=== PATIENT | female | born 1970 | race Caucasian/White ===

== ENCOUNTER 2016-08-28 02:05 | Emergency (ER) | payer MEDICAID ==
[~2016-08-28] VITALS: Ht 162.6 cm; Wt 114.8 kg
[~2016-08-28 02:05] MED LIST: LOPE2CAP29 GT; LSNP10T PO; LSNP20T PO; ONDA2VIA IM; PARO20TA57 PO; SULF-228 PO
--- OUTSIDE RECORDS SUMMARY | 2016-08-28 02:10 | XMS REPORT | Continuity of Care Document ---
Author Author [facility] Address Unknown Phone Unavailable Allergies Active Description Code Type Severity Reaction Onset Reported/Identified Relationship to Patient Clinical Status Yes Cephalexin Monohydrate [id number] Drug Allergy Unknown N/A 11/14/2013 Medications Problems Date Dx Coded Attending Type Code Diagnosis Diagnosed By 11/10/2013 ELIAS RAMOS, CRISTOBAL Ot 300.00 11/10/2013 CRISTOBAL GRIFFIN MD Ot 786.59 11/10/2013 CRISTOBAL GRIFFIN MD Ot 787.91 11/12/2013 TORRIE RANDOLPH DO Ot 276.51 11/12/2013 TORRIE RANDOLPH DO Ot 787.91 04/12/2014 ISABEL FOURNIER MD Ot 300.00 04/12/2014 ISABEL FOURNIER MD Ot 305.1 04/12/2014 ISABEL FOURNIER MD Ot 786.50 01/14/2015 WYATT MADSEN MD Ot 611.89 Procedures Results Encounters ACCT No. Visit Date/Time Discharge Status Pt. Type Provider Facility Loc./Unit Complaint [id number] 09/11/2014 10:53:00 2014 23:59:59 CLS Outpatient TENA RAMOS [facility] [id number] 09/03/2014 08:28:00 2014 23:59:59 CLS Outpatient TENA RAMOS [facility] RAD [id number] 04/12/2014 12:52:00 2013 16:10:00 DIS Emergency IRLANDA RAMOS [facility] ED [id number] 12/20/2013 09:11:00 2013 23:59:59 CLS Outpatient [id number] 11/12/2013 00:52:00 2013 04:08:00 DIS Emergency TORRIE RANDOLPH DO [facility] ED [id number] 11/10/2013 06:00:00 2013 23:59:59 CLS Outpatient [id number] 11/10/2013 06:25:00 2013 08:20:00 DIS Shanelle GRIFFIN MD, [facility] ED [id number] 11/02/2013 11:37:00 2013 23:59:59 CLS Outpatient [id number] 02/22/2013 11:02:00 2012 23:59:59 CLS Outpatient [id number] 12/10/2012 09:29:00 2012 23:59:59 CLS Outpatient
--- OUTSIDE RECORDS SUMMARY | 2016-08-28 02:14 | XMS REPORT | Continuity of Care Document ---
Author Author [facility] Address Unknown Phone Unavailable Allergies Active Description Code Type Severity Reaction Onset Reported/Identified Relationship to Patient Clinical Status Yes Cephalexin Monohydrate [id number] Drug Allergy Unknown N/A 11/14/2013 Medications Problems [...] Status Pt. Type Provider Facility Loc./Unit Complaint [id number] 09/11/2014 10:53:00 2014 23:59:59 CLS Outpatient TENA RAMOS [facility] [id number] 09/03/2014 08:28:00 2014 23:59:59 CLS Outpatient TENA RAMOS [facility] RAD [id number] 04/12/2014 12:52:00 2013 16:10:00 DIS Emergency IRLANDA RAMOS [facility] ED [id number] 12/20/2013 09:11:00 2013 23:59:59 CLS Outpatient [id number] 11/12/2013 00:52:00 2013 04:08:00 DIS Emergency TORRIE RANDOLPH DO [facility] ED [id number] 11/10/2013 06:00:00 2013 23:59:59 CLS Outpatient [id number] 11/10/2013 06:25:00 2013 08:20:00 DIS Shanelle GRIFFIN MD, [facility] ED [id number] 11/02/2013 11:37:00 2013 23:59:59 CLS Outpatient [id number] 02/22/2013 11:02:00 2012 23:59:59 CLS Outpatient [id number] 12/10/2012 09:29:00 2012 23:59:59 CLS Outpatient
[2016-08-28] MEDS ORDERED: ASPIRIN 81 MG CHEW (LOW-DOSE) PO ONE (02:20)
[2016-08-28] MEDS ORDERED: VENL75CA86 PO (02:34)
[2016-08-28] MEDS ORDERED: BUSP7.5T3 PO (02:34)
[2016-08-28 02:47] LABS: BASOPHILS % (AUTO) 0 % (0-2); EOSINOPHILS # (AUTO) 0.3 10^3uL; EOSINOPHILS % (AUTO) 3 % (0-4); LYMPHOCYTES # (AUTO) 4.2 X10^3; MEAN CORPUSCULAR HGB CONC 31.8 g/dL (31.0-37.0); MEAN CORPUSCULAR VOLUME 84 FL (80-100); MEAN PLATELET VOLUME 9.2 FL (6.0-9.5); MONOCYTES # (AUTO) 0.8 X10^3; MONOCYTES % (AUTO) 8 % (3-11); NEUTROPHILS # (AUTO) 5.6 X10^3; NEUTROPHILS % (AUTO) 51 % (51-67); PLATELET COUNT 440 10^3uL (150-450); WHITE BLOOD COUNT 10.96 10^3uL (4.0-11.0)
[2016-08-28 02:48] LABS: MEAN CORPUSCULAR HEMOGLOBIN 26.7 PG (26.0-34.0)
[2016-08-28 02:54] LABS: ALBUMIN 4.2 g/dL (3.4-5.0); ALKALINE PHOSPHATASE 63 U/L (38-126); ANION GAP 14.3 MEQ/L (3-15); BUN/CREATININE RATIO 12 (10-20); CALCULATED IONIZED CALCIUM 3.8 mg/dL (3.8-4.6); CREATINE KINASE 107 U/L (30-135); TOTAL PROTEIN 7.9 g/dL (6.4-8.5)
[2016-08-28 03:41] VITALS: BP 126/76
== END 2016-08-28 03:33 | disposition home or self-care (01) ==
LOC: ED 02:10
DX: R23.2 Flushing (principal); F41.1 Generalized anxiety disorder
CPT/HCPCS: 36415; 80053; 82550; 82553; 84484; 85025; 93005; 99282; A9270; 93010; 99284